=== PATIENT | male | born 1965 | race Caucasian/White ===

== ENCOUNTER 2020-03-25 05:52 | Emergency (ER) | payer MEDICARE, SELFPAY ==
[2020-03-25] VITALS (8 sets, daily range): BP systolic 116–139; BP diastolic 78–97; PULSE 60–81; RESP 10–22; TEMP 36.7; O2SAT 96–100; BMI 23.0
--- NOTE | 2020-03-25 05:54 | XR_ITS ---
PROCEDURE: 1..XR TIBIA FIBULA RT 2V on03/25/2020 6:11 a.m. 2..XR ANKLE RT 2V from 03/25/2020 the The Patient Age:54Y CLINICAL INDICATION: fall swelling pain right ankle fell getting out of bed trimalleolar fracture COMPARISON: CT ANKLE RT WO CON from 03/25/2020 XR TIBIA FIBULA RT 2V from 03/25/2020 XR ANKLE RT 2V from 03/25/2020 FINDINGS: 1. RIGHT ANKLE limited 2 view: Cross-table AP, lateral 2.. RiGHT LOWER LEG 2 view: AP lateral These above studies are reviewed together RIGHT ANKLE: Limited two view study cross-table AP Tri malleolar fracture with pronounced dislocation at the ankle. Severe pronounced posterior dislocation talus relative to the tibia... AP view is rotated making it difficult to determine relationships on rotated AP view view but if anything the lateral malleolus appears slightly medially displaced but I believe this due to its rotated appearance at the ankle Oblique fracture of the distal fibula. The lateral malleolar fracture fragment accompanies the talus posteriorly . Transverse fracture of the medial malleolus. With medial malleolus fragment accompanies talus slightly posteriorly.. Question small posterior malleolar fracture. IMPRESSION: Trimalleolar fracture with severe posterior dislocation Marked posterior dislocation talus; along with accompanying lateral and medial malleolus fragments. Dictated by: Issa Luther MD 03/26/2020 13:38 Electronically signed by Issa Luther MD in [place] 03/26/2020 13:38
--- NOTE | 2020-03-25 05:58 | ECG_ITS ---
APPROVED REPORT Exam: Resting ECG HR:72 bpm ECG Measurements Heart Rate 72 AXES AR 154 P 44 QRSd 98 QRS 3 QT 416 T 32 QTc 455 <Conclusion> Normal sinus rhythm Incomplete RBBB ST elevation, probably due to early repolarization Borderline ECG Electronically signed by : Severino Cotton, 03/25/2020 21:50:34
--- NOTE | 2020-03-25 06:23 | HMH.EDGENADL ---
ED Disposition Clinical Impression: Fracture dislocation of right ankle Qualifiers: Encounter type: initial encounter Fracture type: closed Qualified Code(s): S82.891A - Other fracture of right lower leg, initial encounter for closed fracture Disposition: Home, Self-Care Condition on Discharge: Fair Instructions: How to Use Crutches, DI for Ankle Fracture, How to Take Care of Your Splint, DI for Moderate Sedation, DI for Ankle Dislocation Additional Instructions: Percocet as needed for pain. Use crutches. No weightbearing on your right foot. Additional instructions for FRACTURED (BROKEN) BONE: See Dr. Aguilar tomorrow. Her office will call you tomorrow morning to give you an appointment time. If you do not receive a call from her office, call her office to obtain appointment time. Treat your splint like you would a cast: Do not get it wet (cover with a plastic bag while bathing or showering). If the splint feels too tight, you may loosen the chela wrap covering it, but do not remove the splint. Elevate your leg on several pillows. You may ice the fracture by applying an ice pack over the top of the splint, without removing the splint. Apply an ice pack for 30 minutes 4-5 times a day. Return to an emergency department immediately if you have uncontrollable pain, loss of feeling or inability to move your injured extremity. Additional instructions for CONTROLLED SUBSTANCES: You have been prescribed a medication that is a controlled substance. Controlled substances include pain medications known as opiates and sedative nerve medications known as benzodiazepines. Tramadol, fioricet, and gabapentin are also controlled substances. Some common opiates include: Codeine (such as Tylenol #3) Hydrocodone (Vicodin, Lortab, Lorcet, Martin) Oxycodone (Percocet, Percodan, Oxycodone, Oxy IR) Some common benzodiazepines include: Diazepam (Valium) Lorazepam (Ativan) Alprazolam (Xanax) Clonazepam (Klonopin) Oxazepam (Serax) All of these controlled substances are highly addictive and frequently abused. Misuse can and frequently does lead to addiction as well as overdose and . Medication should be stored in a locked cabinet or other secure storage unit. Do not store the medication in a motor vehicle. Short term supplies, 3 days or less, are prescribed because of the highly addictive nature of the medication. Any of the controlled substance medication NOT taken should be disposed of properly and NOT SAVED. The recommended method of disposing of unused medications is: Place the medicines in a sealable plastic bag. If the medicine is a solid, crush it or add water to dissolve it. Add something undesirable (cat litter, coffee grounds, etc.) Dispose of sealed bag in household trash Do not flush or pour unused medicines down a sink or drain. Controlled substances should not be shared, given away or sold. Because of the addictive nature and frequent abuse, these medications are sometimes stolen. These medications should be kept in a safe place where they cannot be stolen. Do not keep them in your car or purse. Lost or stolen prescriptions for controlled substances WILL NOT BE REFILLED in this emergency department, regardless of whether a police report was filed. Prescriptions: Oxycodone HCl/Acetaminophen [Percocet 5/325mg tablet] 1 tab PO Q6HP PRN #20 tab PRN Reason: Moderate To Severe Pain Prescription Printed Referrals: Provider,MD Sanya [Primary Care Provider] - Sridevi Aguilar MD [Physician] - - Critical Care Critical Care Time: No Attestation: On 03/25/20, the high probability of a clinically significant, sudden or life threatening deterioration of the following system(s) required my full and direct attention, intervention and personal management. The time I documented below is in addition to time spent performing reported procedures but includes the following listed in this critical care notation.
[2020-03-25 06:33] LABS: Basophils # 0.1 K/mm3 (0-0.2); Basophils % 1.1 % (0.1-2.0); Eosinophils # 0.6 K/mm3 (0.0-0.4); Eosinophils % 8.2 % (0.1-12.0); Hematocrit 47.1 % (42.0-52.0); Lymphocytes # 1.7 K/mm3 (0.7-4.5); Lymphocytes % 25.1 % (10-50); Mean Corpuscular HGB Conc 34.1 g/dL (31.8-35.4); Mean Corpuscular Hemoglobin 31.8 pg (27.0-31.2); Mean Corpuscular Volume 93.3 fl (80-94); Mean Platelet Volume 9.2 fl (7.4-10.4); Monocytes # 0.7 K/mm3 (0.1-1.0); Monocytes % 9.8 % (1.7-9.3); Neutrophils # 3.8 K/mm3 (1.8-7.8); Neutrophils % 55.8 % (37.0-80.0); Platelet Count 234 K/mm3 (142-424); Red Blood Count 5.05 M/mm3 (4.60-6.20); Red Cell Distribution Width 13.8 % (11.5-17.5); White Blood Count 6.9 K/mm3 (4.8-10.8)
[2020-03-25 06:43] LABS: Anion Gap 14.9 mEq/L (5-15); Blood Urea Nitrogen 16 mg/dl (9-20); Calcium 9.1 mg/dl (8.4-10.2); Carbon Dioxide 19 mmol/L (22.0-30.0); Chloride 113 mmol/L (98-107); Creatinine Clearance Estimated 93 mL/min (50-200); Estimated Glomerular Filt Rate 78 ml/min (>60); GFR (African American) 95 ML/MIN (>60); Glucose 103 mg/dl (74-100); Potassium 3.9 mmoL/L (3.5-5.1); Sodium 143 mmol/L (136-145)
--- NOTE | 2020-03-25 06:46 | XR_ITS ---
PROCEDURE: XR ANKLE RT 2V Patient Age:54Y CLINICAL INDICATION: post reduction COMPARISON: XR TIBIA FIBULA RT 2V from 03/25/2020 XR ANKLE RT 2V from 03/25/2020 FINDINGS: Right ankle 2 view, post reduction-AP and lateral view. Trimalleolar fracture/dislocation has shown marked improvement and position of elements on this post reduction image set. Fiberglass cast now in place. We again see the transverse fracture through the base of medial malleolus the; the oblique fracture of the distal fibula. Both of these fragments accompany the talus laterally. Fracture at the posterior malleolus no anatomic. Talus and accompanying medial and lateral malleolus remains slightly laterally displaced; the marked posterior dislocation previously seen has reduced on lateral view. IMPRESSION: Satisfactory post reduction right ankle trimalleolar fracture period/dislocation Fiberglass cast material now in place the the Dictated by: Issa Luther MD 03/25/2020 20:16 Electronically signed by Issa Luther MD in [facility] 03/25/2020 20:16
--- NOTE | 2020-03-25 06:54 | CT_ITS ---
PROCEDURE: CT ANKLE RT WO CON 3D volume rendering reconstruction with shading images included Patient Age:54Y CLINICAL HISTORY: fx dislocation right ankle. Patient fell getting out of bed COMPARISON: No exams were available for comparison TECHNIQUE: No IV contrast Helical axial images obtained with sagittal and coronal reformats. 3D volume rendering with shading performed on independent work station by technologist-[address] scans at the facility use one or more dose reduction, viz: automated exposure control, ma/kV adjustment per patient size (including targeted exams where dose is matched to indication, i.e. head), or iterative reconstruction technique. FINDINGS: Trimalleolar fracture: When compared plain film studies from earlier today there is been initial reduction of the trimalleolar fracture dislocation right ankle. On initial 3view ankle radiograph earlier today there was marked posterior displacement of the talus-This is corrected since that initial study. These CT sagittal images show talus articulates is satisfactory fashion with the distal tibia in this view. On the coronal projection we continue to see slight lateral shift the offset of the talus relative to the tibia.--Approximate 5 mm . The talus dome appears intact with no osteochondral injuries. Subtalar joint unremarkable on these views. Fracture Medial Malleolus: Transverse fracture transversing base medial malleolus with trace fragmentation along this fracture line. Note roughly 5 mm distraction at this fracture line. Main fracture fragment here at the tip of the medial malleolus, is slight displacement laterally, and accompanies the talus laterally oblique fracture distal fibula. Mild distraction with minimal fragmentation along fracture line. Inferior aspect of this distal fibular fracture exits at the lateral aspect of ankle joint. On sagittal views superior aspect of this oblique fracture exits to posterior cortex diametaphyseal region There is slight lateral and moderate posterior displacement and offset of this distal fibular fracture fragment. The interosseous ligament appears intact noting intact satisfactory relationships of distal tibia-fibular shaft just above the joint Very small posterior malleolar fragment noted most evident more evident extending medially Soft tissues: Diffuse soft tissue swelling at both medial and lateral malleolus with edema more evident laterally. The swelling and edema extend towards the dorsum foot Last followed note some curious dots of air/gas in the soft tissues the at the medial ankle. These are seen inferior to the medial malleolus on axial image 66 and possibly axial slice 72. Also a few dots of air in the soft tissues above malleolus, anterior to the medial margin of tibia on axial image 47, and 55. These requires correlation. If laceration these could be related to such. If not then may reflect air within venous structures. IMPRESSION: TRIMALLEOLAR FRACTURE: Includes transverse fracture medial malleolus, oblique fracture distal fibula, tiny fracture off posterior malleolus. .. Notable improvement and preliminary reduction of dislocation since the initial radiograph today Specifically marked posterior to the location of talus seen on the initial study is now markedly improved. .. Still there is slight lateral positioning medial and lateral malleolus as air seen to accompany the slight lateral positioning of talus.. Prominent soft tissue swelling ankle most evident laterally. Also note few curious tiny dots of air/gas at the soft tissues overlying medial ankle. If no laceration nor puncture these likely reflect air within veins Dictated by: Hoam
[2020-03-25 06:58] LABS: Troponin I < 0.01 ng/ml (0.00-0.034)
--- NOTE | 2020-03-25 07:28 | PC.NURSE ---
Pt returned from rad
--- NOTE | 2020-03-25 07:36 | PC.NURSE ---
Pt requested that I call [facility] [employer] to attempt to get a hold of his daughter Ainsley Alonso who works there. Spoke with dispatcher and she stated that she would get in contact with Ainsley and have her call the ER.
--- NOTE | 2020-03-25 07:52 | PC.NURSE ---
attempted to call pt daughter dimple, no answer, left a voicemail asking for a return call. attempted to call the number in pts chart, no answer, a recording states the number has been changed or disconnected.
--- NOTE | 2020-03-25 07:58 | PC.NURSE ---
pt daughter dimple called back at this time, stated she will come and get pt, states she will be here approx 30 minutes.
--- NOTE | 2020-03-30 11:55 | SW/DCPLANNER ---
I have called and spoke with this patient regarding discharge plans on Dr Aguilar operates on his broken ankle (next week). Patient stated that he resides at home with his family but does not have a lot of help. Patient also stated that he was suppose to see his family MD this morning but was unable to go due to not having transportation on time to his appointment. I have explained placement vs home health options to this patient. After lengthy discussion patient stated that he would prefer to have home health services at time of discharge. Patient stated that he would be fine at home with family members and home health. I did explain the importance of having transportation to all follow up appointments and patient stated he would have transportation. I also explain placement to this patient and he again stated he would rather have home health. Patient stated that he already has crutches at home but will need a rolling walker and possibly a BSC. Patient may have surgery early next week.
== END 2020-03-25 08:59 | disposition home or self-care (01) ==
PROVIDERS: Emergency Provider Emergency Medicine; PCP Family Medicine
DX: S82.851A Displaced trimalleolar fracture of right lower leg, initial encounter for closed fracture (principal); S82.51XA Displaced fracture of medial malleolus of right tibia, initial encounter for closed fracture; W06.XXXA Fall from bed, initial encounter; Y92.013 Bedroom of single-family (private) house as the place of occurrence of the external cause; Z88.5 Allergy status to narcotic agent
CPT/HCPCS: 27788; 29515; 73590; 73600; 73700; 80048; 84484; 85025; 93005; 96374; 96375; 99152; 99285; J2405

== ENCOUNTER → 2020-04-09 15:22 | Outpatient (CLI) | payer MEDICARE, SELFPAY ==
--- NOTE | 2020-04-09 15:26 | XR_ITS ---
PROCEDURE: XR ANKLE RT MIN 3V CLINICAL INDICATION: ankle fracture Follow-up fracture COMPARISON: CR XR ANKLE RT 2V from 03/25/2020 CR XR ANKLE RT 2V from 03/25/2020 FINDINGS: The cast has been removed. Transverse fracture involves the base of the medial malleolus with mild distraction of the distal fracture fragment by 4 mm. Minimally displaced fracture involves the distal aspect of the fibula with a distal fracture fragment displaced laterally by 4 mm. There remains overlying soft tissue swelling. The distal fibular fracture fragment is displaced posteriorly 8 mm. There is mild widening of the ankle mortise lateral displacement of talus. IMPRESSION: Displaced by malleolar fracture with widening of the mortise and mild lateral displacement of the talus Dictated by: Noel Elmore MD 04/09/2020 17:57 Noel Elmore MD in [place] 04/09/2020 17:57
[2020-04-09 16:46] LABS: MANUAL DIFFERENTIAL MANUAL DIFFERENTIAL (MANUAL DIFF)
[2020-04-09 17:16] LABS: Basophils # 0.1 K/mm3 (0-0.2); Basophils % 1.6 % (0.1-2.0); Eosinophils # 0.6 K/mm3 (0.0-0.4); Eosinophils % 7.3 % (0.1-12.0); Hematocrit 45.7 % (42.0-52.0); Hemoglobin 15.7 g/dL (14.1-18.0); Lymphocytes % 24.1 % (10-50); Mean Corpuscular HGB Conc 34.2 g/dL (31.8-35.4); Mean Corpuscular Hemoglobin 32.7 pg (27.0-31.2); Mean Corpuscular Volume 95.4 fl (80-94); Mean Platelet Volume 9.5 fl (7.4-10.4); Monocytes # 0.4 K/mm3 (0.1-1.0); Monocytes % 4.8 % (1.7-9.3); Neutrophils # 5.2 K/mm3 (1.8-7.8); Neutrophils % 62.2 % (37.0-80.0); Platelet Count 269 K/mm3 (142-424); Red Blood Count 4.79 M/mm3 (4.60-6.20); Red Cell Distribution Width 13.9 % (11.5-17.5); White Blood Count 8.3 K/mm3 (4.8-10.8)
[2020-04-09 17:47] LABS: Activated Partial Thrombo Time 25.2 seconds (23.6-34.0); INR 1.13 (0.9-1.1); Prothrombin Time 11.5 seconds (9.4-11.8)
[2020-04-09 18:12] LABS: Chloride 112 mmol/L (98-107); Potassium 4.6 mmoL/L (3.5-5.1); Sodium 142 mmol/L (136-145)
[2020-04-09 18:14] LABS: Alanine Aminotransferase 13 U/L (12-78); Aspartate Amino Transferase 24 U/L (17-59); Blood Urea Nitrogen 14 mg/dl (9-20); Estimated Glomerular Filt Rate 78 ml/min (>60); GFR (African American) 95 ML/MIN (>60)
[2020-04-09 18:15] LABS: Albumin Level 4.7 g/dl (3.5-5.0); Albumin/Globulin Ratio 1.7 (1.1-1.8); Alkaline Phosphatase 61 U/L (38-126); Anion Gap 14.6 mEq/L (5-15); Bilirubin,Total 0.7 mg/dl (0.2-1.3); Calcium 9.8 mg/dl (8.4-10.2); Carbon Dioxide 20 mmol/L (22.0-30.0); Globulin 2.7 g/dL (1.3-3.2); Glucose 82 mg/dl (74-100); Total Protein,Serum 7.4 g/dl (6.3-8.2)
[2020-04-09 19:29] LABS: Eosinophils % 3 % (0-3); Lymphocytes % 27 % (10-50); Monocytes % 5 % (2-9); Neutrophils % 65 % (42-76); Total Cells Counted 100
[2020-04-09 19:30] LABS: Giant Platelets 1+; Platelet Estimate Normal; RBC Morphology Normal
== END ==
PROVIDERS: PCP Family Medicine; Visit Provider Orthopaedic Surgery
DX: S82.891A Other fracture of right lower leg, initial encounter for closed fracture (principal); D69.6 Thrombocytopenia, unspecified; Z01.818 Encounter for other preprocedural examination
CPT/HCPCS: 36415; 73610; 80053; 85007; 85014; 85018; 85048; 85049; 85610; 85730; U0003

== ENCOUNTER 2020-04-10 10:21 | Day surgery (SDC) | payer MEDICARE, SELFPAY ==
[2020-04-10] VITALS (10 sets, daily range): BP systolic 122–148; BP diastolic 72–92; PULSE 55–93; RESP 14–18; TEMP 36.4–43; O2SAT 93–99; BMI 27.7
--- NOTE | 2020-04-10 13:55 | P.PN_ITS ---
[facility] Anesthesia Checklist - Patient Identification Patient Identification: Arm Band - Structural Data Admitted From: Home Planned Operative Procedure/s: ORIF Right Ankle Consent for Planned Operative Procedure(s) Verified: Yes Verified Documents: Surgical Consent, History and Physical - NPO Status Verified Time NPO: 00:00 - Additional verifications Anesthesia Reactions: No Hx Blood Transfusions: No Blood Transfusion Reaction: No - Airway Assessment C-Spine Mobility Assessed: Yes (mp2) TMJ Mobility Assessed: Yes Dentition: Edentulous - Neurological Assessment Level of Consciousness: Awake, Alert - Anesthesia Plan Anesthesia Risk discussed: Yes Anesthesia Plan: Verified ASA Class: II Anesthesia Type: General w/block [facility] History I have reviewed the patient's past medical history: Yes Medical History: Denies:: Cancer, Diabetes Mellitus Type 1, Diabetes Mellitus Type 2, Internal Pacemaker, MRSA, Seizures *Have you ever received a pneumonia vaccine?: No *Have you received a flu vaccine this season?: No Other Medical History: Denies: Blood Transfusion Reaction Anesthesia experience/problems:: nac Other Surgeries: Yes: Hernia Repair. No: Pacemaker Amputation: No Fractures: Yes (r ankle) - *Social History Last grade of school completed: High school graduate Smoking Status: Current every day smoker Tobacco Type: cigarettes # Packs/Day (cigarettes): 1 Alcohol Intake: current Alcohol Intake Frequency:: a few times a month Substance Use Type: denies use *Occupational Status:: unemployed, disabled Housing: house Household Members: children *Travel in the last 8 weeks: None Family Hx:: No significant family history
--- NOTE | 2020-04-10 16:03 | XR_ITS ---
PROCEDURE: XR ANKLE RT 2V CLINICAL INDICATION: REDUCTION COMPARISON: No exams were available for comparison FINDINGS: Fluoro time: 3 minutes and 57 seconds Fluoroscopy was utilized for by mildly older ORIF. Lateral bone plate is present at the distal fibula and there are 2 screws in the medial malleolar region. There is good alignment of the fracture fragments. Status post syndesmotic repair of the distal tib fib with 2 transverse screws. IMPRESSION: Good alignment status post ORIF distal tib fib Dictated by: Noel Elmore MD 04/10/2020 16:23 Noel Elmore MD in [place] 04/10/2020 16:23
--- NOTE | 2020-04-10 17:00 | HMH.ANESI ---
[facility] Anesthesia Record Part I Intake, IV Amount: 1,500 Estimated blood loss (mL): 25 Urine output (mL): 0 Blood Pressure: 148/92 SaO2: 93 Pulse Rate: 93 Respiratory Rate: 16 Temperature: 97.5 F Patient is:: Drowsy, Stable Stable to PACU at:: 16:55
--- NOTE | 2020-04-10 17:30 | PC.NURSE ---
172-detailed report given to APOLLO Almanza 172-pt transported to post op via stretcher with carola rails up and left in care of APOLLO Almanza with bed locked in lowest position, vss, pt stable
--- NOTE | 2020-04-10 18:46 | P.PN_ITS ---
[facility] [place] Anesthesia Record Part II Discharge Time: 17:25 Destination: Surgical Day Care (OP Surgery) PACU nurse assessment reviewed?: Yes Patient Condition:: Good Anesthesia Complications:: None Swallowing reflex intact?: Yes Cyanosis?: No Blood Pressure: 135/88 Pulse Rate: 78 Temperature: 97.8 F Mental Status: Alert & Oriented Pain level:: 0 Nausea and/or vomitting:: None Intake, IV Amount: 0
--- NOTE | 2020-04-10 21:22 | HMH.OPNOTE ---
Date of procedure: 04/10/20 Pre-op Diagnosis:: R ankle trimalleolar fracture-dislocation Post-op Diagnosis:: R ankle trimalleolar fracture-dislocation Procedure performed:: open reduction internal fixation (ORIF) R ankle (distal fibula + medial malleolus + syndesmosis) Surgeon:: Sridevi Aguilar MD Systems Accountant(s):: Pilar Bhatti ANIME DESIGNER:: Jose Schwartz Anesthesia: GETA, regional Estimated blood loss (mL): 25 Clinical Note:: 54yo M who sustained an injury to the R ankle on 03/25/20. He was evaluated by myself on 03/29/20 and the ankle was too edematous to proceed with surgery at that time. He was asked to obtain medical clearance from his PCP but he did not go to the appointment we scheduled for him. It took a week to reach him via telephone and we finally found him through his brother. Yesterday he returned, with medical clearance from his doctor. The patient denies medical comorbidities, but according to his physician's note he has a history of chronic back pain, bipolar disorder, hepatitis C, h/o seizures and heroin abuse (3 years clean). Allergies include demerol, depakote, toradol. He has smoked 1.5 ppd for the past 39 years. His PCP is Dr. Javier Buck, who has deemed him an acceptable risk for surgery with no contraindications to the procedure. The patient did not elevate the ankle over the past 2 weeks, and yesterday his edema remained unacceptable for surgery. He denies walking on the RLE, but says a few times he's lost balance and placed weight on that foot.. The foot and ankle were wrapped yesterday with Unna boot and resplinted, and he elevated the RLE for many hours overnight. This morning the edema was much improved and appropriate for surgical fixation at this time. I discussed treatment options with the patient, including both operative and non-operative, with their relative risks and benefits. My recommendation is for open reduction internal fixation of the ankle fracture, and the patient is in agreement with this plan. I discussed the risks of surgery, including but not limited to: bleeding, infection, wound healing complications, non-union, malunion, persistent pain despite surgery, post-traumatic arthritis, painful hardware, and need for further surgery in the future. I also emphasized her increased risk for adverse event or suboptimal healing/outcome given his status as a heavy smoker, and I strongly encouraged smoking cessation. The patient was in agreement the plan for surgery, vocalized understanding of the risks of the procedure, and provided informed consent. Operative findings:: Becky VariAx ankle set 4 hole distal fibula locking plate (4 holes in shaft; 9 total) 1 lag screw, 3.5mm non-locking 6 screws in plate, 3 proximal to fracture line and 3 distal; all 3.5mm diameter, 3 locking/3 non-locking 2 syndesmosis screws, passed through plate, 3.5mm diameter/fully threaded medial malleolus: 2 cannulated, partially-threaded cancellous screws; 4.0mm diameter each Operative note:: The patient was identified in preoperative holding and the R ankle signed by myself. Surgical consent was verified with the patient and all questions answered. He was then seen by anesthesia and popliteal nerve block performed in preoperative holding. The patient was then taken to the operating room and placed supine on the OR table. 1g cefazolin was infused intravenously and general anesthesia induced. Once the patient was asleep, the splint was removed from the right ankle and soft tissues appeared amenable to fixation. Some ecchymosis remained both medially and laterally on the heel, but no blistering or open wounds present. Nonsterile tourniquet was placed on the right thigh and the right lower leg and ankle were prepped and draped in the usual sterile fashion with the lower leg supported on a radiolucent bolster (bone foam). Timeout was performed, identifying the correct patient, correct procedure, and correct site. The procedure was
--- NOTE | 2020-04-11 10:21 | SW/DCPLANNER ---
SENT REFERRAL TO [facility] FOR A WHEELCHAIR FOR THIS PATIENT, PATIENT WAS NOT ABLE TO TOLERATE CRUTCHES... I HAVE ALSO SENT REFERRAL AND PATIENT INFORMATION TO [facility] FOR HOME HEALTH PT SERVICES...PATIENT HAD OUTPATIENT SURGERY FOR A FX ANKLE... I MADE CONTACT WITH HIM TODAY AND TOLD HIM SOMEONE FROM [facility] [employer] WOULD BE CALLING HIM TO START SERVICES AND HIS WHEELCHAIR WILL BE DELIVERED TO HIS HOME....
--- NOTE | 2020-04-12 09:45 | CARE MANAGER ---
Patient unable to tolerate crutches or walker. Would benefit from wheelchair to navigate in home. APOLLO Henley
== END 2020-04-10 17:55 | disposition home or self-care (01) ==
LOC: OR 10:21
PROVIDERS: PCP Family Medicine; Visit Provider Orthopaedic Surgery
PROC: (CPT 27822; principal; 2020-04-10 10:30)
DX: S82.851A Displaced trimalleolar fracture of right lower leg, initial encounter for closed fracture (principal); W06.XXXA Fall from bed, initial encounter; Y92.013 Bedroom of single-family (private) house as the place of occurrence of the external cause
CPT/HCPCS: 27822; 73600; 76000; 96374; C1713; C1776; J2405

== ENCOUNTER → 2020-04-19 09:07 | Outpatient (CLI) | payer MEDICARE, SELFPAY ==
--- NOTE | 2020-04-19 09:14 | XR_ITS ---
PROCEDURE: XR ANKLE RT MIN 3V CLINICAL INDICATION: sp RT filipe surgery, sx 04/10/2020 Follow-up surgery COMPARISON: CR XR ANKLE RT 2V from 03/25/2020 CR XR ANKLE RT 2V from 03/25/2020 CR XR ANKLE RT MIN 3V from 04/09/2020 XA XR ANKLE RT 2V from 04/10/2020 FINDINGS: Status post ORIF of the by malleolar fracture subluxation. Lateral bone plate noted at the distal fibula with 2 screws stabilizing the medial malleolus. There are 2 transverse screws stabilizing the distal tib fib syndesmosis with an additional oblique screw through the distal fibula. There is good alignment. A cast is in place. IMPRESSION: Good alignment status post ORIF by malleolar fracture with syndesmotic repair Dictated by: Noel Elmore MD 04/19/2020 11:22 Noel Elmore MD in [place] 04/19/2020 11:22
== END ==
LOC: RAD 09:09
PROVIDERS: Visit Provider Orthopaedic Surgery
DX: S82.891A Other fracture of right lower leg, initial encounter for closed fracture (principal); Z09 Encounter for follow-up examination after completed treatment for conditions other than malignant neoplasm
CPT/HCPCS: 73610

== ENCOUNTER → 2020-05-11 09:28 | Outpatient (CLI) | payer MEDICARE, SELFPAY ==
--- NOTE | 2020-05-11 09:38 | XR_ITS ---
PROCEDURE: XR ANKLE RT MIN 3V CLINICAL INDICATION: s/p ORIF rt ankle now with cast removed COMPARISON: CR XR ANKLE RT 2V from 03/25/2020 CR XR ANKLE RT MIN 3V from 04/19/2020 FINDINGS: The lateral fibular bone plate is again noted stabilizing the fibular fracture in anatomic alignment which is essentially healed. The obliquely oriented threaded screws are seen stabilizing the medial malleolar fracture which is almost healed. The ankle mortise appears normal. IMPRESSION: Satisfactory ORIF bimalleolar fracture Dictated by: Dr. Cuco Garcia MD 05/11/2020 11:53 Dr. Cuco Garcia MD in [facility] 05/11/2020 11:53
== END ==
LOC: RAD 09:32
PROVIDERS: PCP Family Medicine; Visit Provider Orthopaedic Surgery
DX: S82.891A Other fracture of right lower leg, initial encounter for closed fracture (principal)
CPT/HCPCS: 73610

== ENCOUNTER → 2020-06-01 08:50 | Outpatient (CLI) | payer MEDICARE, SELFPAY ==
--- NOTE | 2020-06-01 08:57 | XR_ITS ---
PROCEDURE: XR ANKLE RT MIN 3V CLINICAL INDICATION: Rt ankle FX FU; OUT OF CAST COMPARISON: CR XR ANKLE RT 2V from 03/25/2020 CR XR ANKLE RT MIN 3V from 04/09/2020 CR XR ANKLE RT MIN 3V from 04/19/2020 CR XR ANKLE RT MIN 3V from 05/11/2020 FINDINGS: Status post ORIF distal tib fib. No change in the bony hardware. There remains good alignment. The fracture line at the medial malleolus is once again noted. There is some increased sclerosis at the tip of the medial malleolus which could be related to developing avascular necrosis. Mild osteoarthritic changes are present at the talocalcaneal joint and at the anterior aspect of the distal tibia. IMPRESSION: Good alignment status post ORIF. Possible developing avascular necrosis at the medial malleolus. Dictated by: Noel Elmore MD 06/01/2020 17:18 Noel Elmore MD in [place] 06/01/2020 17:18
== END ==
LOC: RAD 08:53
PROVIDERS: PCP Family Medicine; Visit Provider Orthopaedic Surgery
DX: S82.891A Other fracture of right lower leg, initial encounter for closed fracture (principal)
CPT/HCPCS: 73610

== ENCOUNTER 2020-06-01 09:43 | Outpatient (RCR) | payer MEDICARE, SELFPAY | END 2020-06-01 10:30 | disposition home or self-care (01) | LOC: PT 09:43 | PROVIDERS: Visit Provider Orthopaedic Surgery | DX: S82.891A Other fracture of right lower leg, initial encounter for closed fracture (principal) | CPT/HCPCS: 97760 ==